=== PATIENT | male | born 1945 | race Caucasian/White ===

== ENCOUNTER → 2023-04-06 | Outpatient (CLI) | payer MEDICARE, OTHER ==
[2023-04-06 16:20] LABS: CREATININE 1.6 mg/dL (0.5-1.5); POTASSIUM 5.1 mmol/L (3.5-5.1)
== END | disposition home or self-care (01) ==
LOC: LAB 12:57
PROVIDERS: ATTEND Internal Medicine Cardiovascular Disease
DX: I10 Essential (primary) hypertension (principal); I45.10 Unspecified right bundle-branch block; R55 Syncope and collapse
CPT/HCPCS: 36415; 80048